=== PATIENT | male | born 1960 | race Caucasian/White ===

== ENCOUNTER 2017-02-26 12:30 | Inpatient (IN) | payer BC ==
[~2017-02-26] VITALS: Ht 179.1 cm; Wt 116.9 kg
[2017-02-26 13:29] LABS: HEMATOCRIT 43.8 % (38.0-50.0); HEMOGLOBIN 14.8 G/DL (12.5-16.6); MCH 30.2 PG (29.0-34.0); MCHC 33.8 G/DL (30.0-36.0); MCV 89.4 FL (86-99); PLATELET COUNT 280 K/uL (156-360); RBC DIS.WIDTH-CV 13.1 % (11.8-14.6); RBC DIS.WIDTH-SD 42.8 % (39-53); WHITE BLOOD COUNT 9.7 K/uL (4.1-10.2)
[2017-02-26 13:41] LABS: CHLORIDE 105 mEq/L (99-109); SODIUM 139 mEq/L (136-147)
[2017-02-26 13:43] LABS: GLUCOSE 107 mg/dL (70-99)
[2017-02-26 13:47] LABS: CREATININE 0.8 mg/dL (0.6-1.3); GFR ESTIMATE (CALCULATED) > 59 mL/min/ (58.99-99999)
[2017-02-26 13:48] LABS: UREA NITROGEN (BUN) 12 mg/dL (9-23)
[2017-02-26 13:49] LABS: TROP-I INTERPRETATION NEGATIVE
[2017-02-26 14:57] LABS: INTER. NORMALIZED RATIO 1.1
[2017-02-26 17:33] VITALS: BP 131/76
[2017-02-26 19:09] LABS: TROP-I INTERPRETATION POSITIVE; TROPONIN-I 0.93 ng/mL (0.0-0.30)
[2017-02-26 19:30] VITALS: BP 130/66
[2017-02-26 20:49] LABS: INTER. NORMALIZED RATIO 1.2
[2017-02-26 20:52] LABS: PTT 30.1 SEC (25-37)
[2017-02-26 23:20] VITALS: BP 110/62
[2017-02-27 01:00] LABS: TROP-I INTERPRETATION POSITIVE
[2017-02-27 01:03] LABS: TROPONIN-I 1.65 ng/mL (0.0-0.30)
[2017-02-27 01:45] VITALS: BP 105/60
[2017-02-27 05:03] VITALS: BP 108/51
[2017-02-27 07:34] LABS: HEMATOCRIT 41.3 % (38.0-50.0); HEMOGLOBIN 13.5 G/DL (12.5-16.6); MCH 29.5 PG (29.0-34.0); MCHC 32.7 G/DL (30.0-36.0); MCV 90.2 FL (86-99); PLATELET COUNT 243 K/uL (156-360); RBC DIS.WIDTH-CV 13.2 % (11.8-14.6); RBC DIS.WIDTH-SD 43.4 % (39-53); RED BLOOD COUNT 4.58 M/uL (4.00-5.50); WHITE BLOOD COUNT 9.2 K/uL (4.1-10.2)
[2017-02-27 07:58] LABS: TROPONIN-I 1.25 ng/mL (0.0-0.30)
[2017-02-27 07:59] LABS: TROP-I INTERPRETATION POSITIVE
[2017-02-27 08:45] VITALS: BP 116/69
[2017-02-27 17:58] VITALS: BP 137/74
[2017-02-27 19:25] VITALS: BP 133/75
[2017-02-27 21:00] VITALS: BP 123/70
[2017-02-28 00:20] VITALS: BP 103/64
[2017-02-28 05:01] VITALS: BP 125/67
[2017-02-28 05:15] LABS: BASOPHIL (%) 0.6 % (0-1); BASOPHIL COUNT 0.1 K/uL (0-0.1); EOSINOPHIL (%) 1.9 % (0-5); EOSINOPHIL COUNT 0.2 K/uL (0-0.3); HEMOGLOBIN 14.2 G/DL (12.5-16.6); IMMATURE GRANULOCYTE (%) 0.2 % (0.0-0.7); LYMPHOCYTE (%) 30.9 % (15-42); LYMPHOCYTE COUNT 3.4 K/uL (1.0-2.8); MCH 30.2 PG (29.0-34.0); MCHC 33.8 G/DL (30.0-36.0); MCV 89.4 FL (86-99); MONOCYTE (%) 6.9 % (3-12); MONOCYTE COUNT 0.8 K/uL (0-0.8); NEUTROPHIL (%) 59.5 % (45-76); NEUTROPHIL COUNT 6.5 K/uL (1.8-6.4); PLATELET COUNT 257 K/uL (156-360); RBC DIS.WIDTH-CV 13.2 % (11.8-14.6); RBC DIS.WIDTH-SD 43.7 % (39-53); WHITE BLOOD COUNT 10.9 K/uL (4.1-10.2)
[2017-02-28 05:49] LABS: CHLORIDE 105 MEQ/L (99-109); CREATININE 0.8 MG/DL (0.6-1.3); GFR ESTIMATE (CALCULATED) > 59 mL/min/ (58.99-99999); GLUCOSE 100 mg/dL (70-99); HDL CHOLESTEROL 32 MG/DL (Desirable>=40); LDL CHOLESTEROL 59 mg/dL (Desirable<100); NON-HDL CHOLESTEROL 89 mg/dL (Desirable<160); POTASSIUM 4.7 MEQ/L (3.7-5.4); SODIUM 138 MEQ/L (136-147); TOTAL CHOLESTEROL 121 mg/dL (Desirable<200); TRIGLYCERIDES 148 MG/DL (Normal: <150); UREA NITROGEN (BUN) 15 mg/dL (9-23)
[2017-02-28 06:52] LABS: Estimated Average Glucose 140 mg/dL (70-123); HEMOGLOBIN A1c (GLYCOHEMOGLOB) 6.5 % HGB (Below 5.7)
[2017-02-28 08:00] VITALS: BP 139/80
[2017-02-28] MEDS ORDERED: CLOPIDOGREL75 MG PO (12:14)
== END 2017-02-28 14:08 | disposition home or self-care (01) | DRG 247 ==
LOC: EME 12:30 → EDOF 14:49 → ENRESERV 15:09 → 5WEST 17:02 → 4EAST 22:36 → 5WEST 22:36 → ENRESERV 22:37 → 4EAST 02-27 01:22 → ENPENDDIS 02-28 → 4EAST 02-28 14:08
PROVIDERS: Emergency Medicine; Internal Medicine; Internal Medicine Cardiovascular Disease; Physician Assistant Medical; Student in an Organized Health Care Education/Training Program
PROC: B2111ZZ Fluoroscopy of Multiple Coronary Arteries using Low Osmolar Contrast (ICD-10-PCS; principal; 2017-02-27)
PROC: B2151ZZ Fluoroscopy of Left Heart using Low Osmolar Contrast (ICD-10-PCS; principal; 2017-02-27)
PROC: 4A023N7 Measurement of Cardiac Sampling and Pressure, Left Heart, Percutaneous Approach (ICD-10-PCS; principal; 2017-02-27)
PROC: 027034Z Dilation of Coronary Artery, One Artery with Drug-eluting Intraluminal Device, Percutaneous Approach (ICD-10-PCS; principal; 2017-02-27)
DX: I21.4 Non-ST elevation (NSTEMI) myocardial infarction (principal); I23.7 Postinfarction angina; I25.118 Atherosclerotic heart disease of native coronary artery with other forms of angina pectoris; I10 Essential (primary) hypertension; E78.5 Hyperlipidemia, unspecified; K21.9 Gastro-esophageal reflux disease without esophagitis; E66.9 Obesity, unspecified; Z68.36 Body mass index [BMI] 36.0-36.9, adult; I25.2 Old myocardial infarction; Z95.5 Presence of coronary angioplasty implant and graft; Z79.82 Long term (current) use of aspirin; Z88.5 Allergy status to narcotic agent
CPT/HCPCS: 71020; 80048; 80061; 83036; 84484; 85025; 85027; 85347; 85610; 85730; 93005; 99281; 99284; C1725; C1750; C1769; C1874; C1887; J0583; J1644; J1650; J2250; J3010